=== PATIENT | male | born 1960 | race Hispanic/Latino ===

== ENCOUNTER 2017-03-18 21:44 | Emergency (ER) | payer MEDICARE, BC ==
[2017-03-18 21:52] VITALS: BP 125/87; PULSE 76; TEMP 97.8; O2SAT 99
--- NOTE | 2017-03-18 22:31 | C.PDOC ---
History Of Present Illness Patient is a 56 year old male w/PMhx of chronic lower back pain on pain medication, who presents to the ER with a complaint of chronic back pain exacerbation for past 2 days. Patient request fentanyl patch 100 mg. Patient sts , ran out of fentanyl patch medication. Patient's last fentanyl patch application was 3 days ago. Patient admits, pain in lower back is similar to previous episodes with no change in quality or location. Patient denies recent trauma, injury, fever, chills, abd. pain, N/V, denies UTi sx, saddle anesthesia , incontinence, denies new weakness, sensory or vascular deficits to B/L LEs. Ambulate to Ed w/assistance of cane. MAXIMOI: ANGEL ADULT EDUCATOR reviewed, patient has had multiple Rx for morphine, oxycodon, fentanyl patches, and xanax for past 2-3 weeks. Time Seen by Provider: 03/18/17 21:54 Chief Complaint (Nursing): Back Pain History Per: Patient History/Exam Limitations: no limitations Onset/Duration Of Symptoms: Days, Persistent Current Symptoms Are (Timing): Still Present Previous Symptoms: Back Pain (Lower), Chronic Pain Associated Symptoms: None Past Medical History Reviewed: Historical Data, Nursing Documentation, Vital Signs Vital Signs: Last Vital Signs Temp 97.8 F 03/18/17 21:47 Pulse 76 03/18/17 21:47 Resp 20 03/18/17 22:32 BP 125/87 03/18/17 21:47 Pulse Ox 99 03/18/17 22:59 - Medical History PMH: Back Problems Surgical History: Back Surgery Family History: States: Unknown Family Hx - Social History Hx Alcohol Use: No Hx Substance Use: No - Immunization History Hx Tetanus Toxoid Vaccination: No Hx Influenza Vaccination: No Hx Pneumococcal Vaccination: No Review Of Systems Musculoskeletal: Positive for: Back Pain (lower). Negative for: Neck Pain, Leg Pain Neurological: Negative for: Weakness Physical Exam - Physical Exam Appears: Well, No Acute Distress Skin: Normal Color, Warm, Dry Eye(s): bilateral: PERRL (pinpoint) Oral Mucosa: Moist Throat: Normal Neck: Normal ROM, Supple Cardiovascular: Rhythm Regular Respiratory: No Decreased Breath Sounds, No Accessory Muscle Use, No Stridor, No Wheezing Gastrointestinal/Abdominal: Soft, No Tenderness Back: Paraspinal Tenderness (Mild diffuse, Lumbar), Other (well healed scan along T-spine extends to L-spine. No edema, no erythema, no palpable deformiy midline.) Extremity: No Pedal Edema, No Calf Tenderness, No Swelling Neurological/Psych: Oriented x3, Normal Speech, Normal Cognition, Normal Motor, Normal Sensation, Normal Reflexes ED Course And Treatment O2 Sat by Pulse Oximetry: 99 (Room air) Pulse Ox Interpretation: Normal Progress Note: Pt was informed about Hospital "Pain medictaion refill policy", after that pt became agitated, called me names and left ED without discharges papers. Suspect drug seeking behaviour. Disposition Counseled Patient/Family Regarding: Diagnosis, Need For Followup - Disposition Referrals: [facility] at [facility] [Outside] Disposition: HOME/ ROUTINE Disposition Time: 22:29 Condition: STABLE Additional Instructions: Follow up with PMD, Pain management in 1-2 days for re-evaluation and further pain medication refill/control Instructions: Chronic Back Pain (ED) - Clinical Impression Clinical Impression: Chronic lower back pain, Drug-seeking behavior - Scribe Statement The provider has reviewed the documentation as recorded by the Scribe Deandre Antony All medical record entries made by the Scribe were at my direction and personally dictated by me. I have reviewed the chart and agree that the record accurately reflects my personal performance of the history, physical exam, medical decision making, and the department course for this patient. I have also personally directed, reviewed, and agree with the discharge instructions and disposition.
[2017-03-18 22:33] VITALS: RESP 20
== END 2017-03-18 22:32 | disposition home or self-care (01) ==
LOC: C.ER 21:44
DX: M54.5 Low back pain (principal); G89.29 Other chronic pain; Z76.5 Malingerer [conscious simulation]